=== PATIENT | male | born 1950 | race Caucasian/White ===

== ENCOUNTER → 2016-05-31 | Outpatient (CLI) | payer OTHER, MEDICARE | LOC: MMPC 09:00 | PROVIDERS: ATTEND Family Medicine | DX: E29.1 Testicular hypofunction (principal) | CPT/HCPCS: G0463; J1071 ==

== ENCOUNTER → 2016-06-14 | Outpatient (CLI) | payer OTHER, MEDICARE | LOC: MMPC 09:00 | PROVIDERS: ATTEND Family Medicine | DX: E53.8 Deficiency of other specified B group vitamins (principal); E29.1 Testicular hypofunction | CPT/HCPCS: G0463; J1071; J3420 ==

== ENCOUNTER → 2016-06-28 | Outpatient (CLI) | payer OTHER, MEDICARE | LOC: MMPC 09:00 | PROVIDERS: ATTEND Family Medicine | DX: E29.1 Testicular hypofunction (principal) ==

== ENCOUNTER → 2016-07-12 | Outpatient (CLI) | payer OTHER, MEDICARE | LOC: MMPC 09:00 | PROVIDERS: ATTEND Family Medicine | DX: E29.1 Testicular hypofunction (principal); E53.8 Deficiency of other specified B group vitamins | CPT/HCPCS: G0463; J1071; J3420 ==

== ENCOUNTER → 2016-07-25 | Outpatient (CLI) | payer OTHER, MEDICARE ==
--- NOTE | 2016-07-26 07:45 | DI ---
LEFT THUMB EXAM, 07/25/2016 11:25 AM: Clinical History: Pain in the left thumb. Previous Exam: None at this facility. 3 views are submitted. There is no acute soft tissue, osseous, or joint abnormality. Arthritic change s are present in the first carpometacarpal joint. Vascular calcifications are present in the radial a rtery in a pattern typical for patients who have diabetes. Reading: Degenerative arthritis involving the first carpometacarpal joint.
--- NOTE | 2016-07-26 07:48 | DI ---
RIGHT THUMB, 07/25/2016 11:25 AM: Clinical History: Pain in the right thumb. Previous Exam: None at this facility. 3 views are submitted. There is no acute soft tissue, osseous, or joint abnormality. There are degene rative changes involving the articulation between the trapezium and scaphoid bones. There are also va scular calcifications that are in a pattern typical of patients who have diabetes. Reading: The right thumb exam is normal. Arthritic changes are present in the articulation between the scaphoi d and trapezium bones.
== END ==
LOC: ORTHO 11:35
PROVIDERS: ATTEND Orthopaedic Surgery
DX: M79.645 Pain in left finger(s) (principal); M79.644 Pain in right finger(s); M19.032 Primary osteoarthritis, left wrist; M19.031 Primary osteoarthritis, right wrist
CPT/HCPCS: 20600; 73140; 99203

== ENCOUNTER → 2016-08-09 | Outpatient (CLI) | payer OTHER, MEDICARE | LOC: MMPC 09:00 | PROVIDERS: ATTEND Family Medicine | DX: E29.1 Testicular hypofunction (principal); E53.8 Deficiency of other specified B group vitamins | CPT/HCPCS: G0463; J1071; J3420 ==

== ENCOUNTER → 2016-08-15 | Outpatient (CLI) | payer OTHER, MEDICARE ==
[2016-08-15 09:28] LABS: HEMATOCRIT 51.6 % (42.0-52.0); HEMOGLOBIN 17.8 g/dL (14.0-18.0); MEAN CORPUSCULAR HGB CONC 34.5 g/dL (33-37); MEAN CORPUSCULAR VOLUME 92.8 FL (80-90); MEAN PLATELET VOLUME 8.8 FL (7.4-12.2); RED BLOOD COUNT 5.56 10^6/uL (4.70-6.10)
[2016-08-15 09:43] LABS: HEMOGLOBIN A1C 8.76 % (4.2-6.0)
[2016-08-15 09:46] LABS: BUN/CREATININE RATIO 16.66 (6-20); CALCIUM 8.5 mg/dL (8.7-10.7); PHOSPHORUS 3.9 mg/dl (2.4-4.3)
== END ==
LOC: LAB 09:09
PROVIDERS: ATTEND Family Medicine
DX: E11.9 Type 2 diabetes mellitus without complications (principal); I12.9 Hypertensive chronic kidney disease with stage 1 through stage 4 chronic kidney disease, or unspecified chronic kidney disease; N18.3 Chronic kidney disease, stage 3 (moderate); D63.1 Anemia in chronic kidney disease; N25.81 Secondary hyperparathyroidism of renal origin; R06.02 Shortness of breath
CPT/HCPCS: 36415; 80069; 82565; 83036; 83970; 84156; 85027

== ENCOUNTER → 2016-08-20 | Outpatient (CLI) | payer OTHER, MEDICARE ==
--- NOTE | 2016-08-20 15:51 | EKG ---
[address] [place] [address] Measurements Intervals [place] Rate: 89 P: 65 GA: 230 QRS: 22 QRSD: 102 T: -44 QT: 335 QTc: 381 Interpretive Statements SINUS RHYTHM WITH FIRST DEGREE AV BLOCK MODERATE T-WAVE ABNORMALITY, CONSIDER INFERIOR ISCHEMIA Compared to ECG 01/15/2016 12:34:36 T-wave abnormality now present Possible ischemia now present Myocardial infarct finding no longer present Electronically Signed On 08-20-16 16:01:50 MDT by Hussein Harding [email or web address]
--- NOTE | 2016-08-20 15:53 | PE ---
[facility] [place]ive Statements [id number]
[2016-08-20 15:59] LABS: BUN/CREATININE RATIO 9.37 (6-20); CALCIUM 8.7 mg/dL (8.7-10.7); SERUM ALBUMIN 3.9 g/dL (3.5-4.8)
== END ==
LOC: RT 14:39
PROVIDERS: ATTEND Family Medicine
DX: I50.9 Heart failure, unspecified (principal); R06.02 Shortness of breath; I10 Essential (primary) hypertension; I44.0 Atrioventricular block, first degree
CPT/HCPCS: 36415; 80053; 82728; 83540; 83550; 84439; 84443; 84484; 93005; 93010; 94375

== ENCOUNTER → 2016-08-22 | Outpatient (CLI) | payer OTHER, MEDICARE | LOC: MMPC 10:00 | PROVIDERS: ATTEND Orthopaedic Surgery | DX: M19.042 Primary osteoarthritis, left hand (principal); M19.032 Primary osteoarthritis, left wrist | CPT/HCPCS: 20605 ×2; 99213; G0463; J0702 ==

== ENCOUNTER → 2016-08-26 | Outpatient (CLI) | payer OTHER, MEDICARE | LOC: MMPC 09:00 | PROVIDERS: ATTEND Family Medicine | DX: R53.83 Other fatigue (principal); E11.9 Type 2 diabetes mellitus without complications; R06.09 Other forms of dyspnea; G47.00 Insomnia, unspecified | CPT/HCPCS: 99214; G0463 ==

== ENCOUNTER → 2016-09-05 | Outpatient (CLI) | payer OTHER, MEDICARE | LOC: LAB 11:22 | PROVIDERS: ATTEND Urology | DX: E29.1 Testicular hypofunction (principal); Z12.5 Encounter for screening for malignant neoplasm of prostate | CPT/HCPCS: 36415; 84153; 84403 ==

== ENCOUNTER 2016-09-14 12:40 | Emergency (ER) | payer OTHER, MEDICARE ==
[2016-09-14] MEDS ORDERED: MAG HYDROX/AL HYDROX/SIMETH 30 ML SUSP PO ONE (13:07)
[2016-09-14] MEDS ORDERED: Sodium Chloride 0.9% 1,000 ML PRIMARY IV ONE (13:07)
[2016-09-14] MEDS ORDERED: ASPIRIN 81 MG (BABY) CHEWABLE TABLET PO ONE (13:07)
[2016-09-14] MEDS ORDERED: ONDANSETRON 4 MG/2 ML VIAL IVP ONE (13:07)
[2016-09-14] MEDS ORDERED: NORMAL SALINE 10 ML SYRINGE FLUSH IVP PRN (13:07)
--- NOTE | 2016-09-14 13:10 | EKG ---
[address] [address] Measurements Intervals [place] Rate: 103 P: 57 MI: 208 QRS: -17 QRSD: 106 T: -12 QT: 329 QTc: 389 Interpretive Statements SINUS TACHYCARDIA ABNORMAL RHYTHM ECG Compared to ECG 08/20/2016 14:50:38 Sinus rhythm no longer present First degree AV block no longer present T-wave abnormality no longer present Possible ischemia no longer present Electronically Signed On 09-17-16 16:22:29 MDT by Hussein Harding [id number]
[2016-09-14 13:14] LABS: BASOPHILS # (AUTO) 0.04 10*3/UL; BASOPHILS % (AUTO) 0.5 % (0-1); EOSINOPHILS # (AUTO) 0.18 10*3/UL; EOSINOPHILS % (AUTO) 2.2 % (0-8); HEMATOCRIT 57.4 % (42.0-52.0); HEMOGLOBIN 19.1 g/dL (14.0-18.0); LYMPHOCYTES # (AUTO) 1.36 10*3/uL; MEAN CORPUSCULAR HEMOGLOBIN 30.9 PG (27-31); MEAN CORPUSCULAR HGB CONC 33.3 g/dL (33-37); MEAN CORPUSCULAR VOLUME 92.7 FL (80-90); MEAN PLATELET VOLUME 9.6 FL (7.4-12.2); MONOCYTES # (AUTO) 0.62 10*3/UL (0.3-0.8); MONOCYTES % (AUTO) 7.7 % (5-15); NEUTROPHILS # (AUTO) 5.84 10*3/UL; NEUTROPHILS % (AUTO) 72.3 % (50-80); RED BLOOD COUNT 6.19 10^6/uL (4.70-6.10)
[2016-09-14 13:16] LABS: PLATELET MORPHOLOGY COMMENT NORMAL MORPHOLOGY (NORM); RBC MORPHOLOGY COMMENT NORMAL MORPHOLOGY (NORM); WBC MORPHOLOGY COMMENT NORMAL MORPHOLOGY (NORM)
[2016-09-14 13:24] LABS: BUN/CREATININE RATIO 15.88 (6-20); CALCIUM 9.1 mg/dL (8.7-10.7); SERUM ALBUMIN 4.1 g/dL (3.5-4.8)
[2016-09-14 13:35] LABS: CREATINE KINASE MB 3.87 NG/ML (0.00-5.00)
[2016-09-14 14:04] LABS: TROPONIN I 0.489 ng/mL (< 0.040)
[2016-09-14] MEDS ORDERED: HEPARIN 5000 UNIT/1 ML IV ONE (14:54)
[2016-09-14] MEDS ORDERED: Metoprolol TARTRATE Tab 50 MG TAB PO ONE ×2 (14:54→15:00)
[2016-09-14] MEDS ORDERED: METOPROLOL TARTRATE 5 MG/5 ML VIAL ONE (14:54)
[2016-09-14] MEDS ORDERED: HEPARIN 5000 UNIT/1 ML ONE (14:54)
[2016-09-14] MEDS: METOPROLOL TARTRATE 5 MG/5 ML VIAL IVP ONE ×3 (14:55→15:05)
--- NOTE | 2016-09-14 15:17 | PDOC ---
Chest Pain HPI - General Chief Complaint: Chest Pain Stated Complaint: heartburn x3 days, not feeling well x6 weeks Date Seen by Provider: 09/14/16 Time Seen by Provider: 13:00 Source: Patient, Spouse, Old records Exam Limitations: POSITIVE: No limitations Treatment Prior to Arrival: REPORTS: Nitroglycerin (Times one), Aspirin (baby, times one) Nurse's Notes Reviewed & Considered: Yes - History of Present Illness Initial Comments: The patient is a 66-year-old male who presents ambulatory to the emergency room. He states that for the past 3-4 days he has had chest pain which she describes as "heartburn"which she indicates is localized over the substernal and left anterior thorax. Past medical history is significant in that he sustained a myocardial infarction in October 2015 after he had similar episodes of discomfort. He states that his present pain is "not bad"and he rates it as a 3 on a scale of 10. Patient has a history of diabetes mellitus. He had a gastric bypass in 2004 with a weight loss of over 100 pounds. He has not smoked since 1995. Patient has had a left nephrectomy for cancer, according to patient, in 1995. Patient took a nitroglycerin tablet one hour [employer] and his chest pain has since resolved. He states that he has nitroglycerin on hand, but has never before taken it. He takes a baby aspirin daily as well as clopidogrel. He has a history of COPD and chronic back pain. He had a cardiac stent done in October 2015. Upon presentation to the emergency room he is comfortable. He is noted to be in a mild sinus tachycardia of around 100/m and his blood pressure was 172/104. Body Location Affected: REPORTS: Chest Timing: REPORTS: Intermittent Duration: >24 hours (3-4 days) Severity: Moderate Quality: REPORTS: "Pain" Radiation: REPORTS: None Associated Symptoms: REPORTS: Other (Fatigue; patient states that he has "just not felt well"with easy fatigability and tiredness. He states he's felt this way for the past 6 weeks. He was evaluated by his primary care provider for these symptoms, without any etiology found, reportedly.) Modifying Factors: improves with: Nitroglycerin (Relieved) Similar Symptoms Previously: Yes (in October 2015 preceding his previous myocardial infarction) Recently seen/treated/hospitalized: Yes (as above) Any Prior Injuries Related to Current Complaint?: No - Patient Home Medications Home Medications: Home Medications Budesonide [Pulmicort] 0.5 mg IH Q12H 11/12/10 Formoterol Fumarate [Perforomist] 20 mcg IH BID ml 11/26/10 Ipratropium/Albuterol Sulfate [Duoneb 0.5 Mg-3 Mg/3 Ml Soln] 3 ml IH QD PRN #30 09/30/11 Cyanocobalamin 1,000 mcg IM monthly 30 Days 12/23/11 Blood Sugar Diagnostic, Drum [Accu-Chek Compact] 1 each IN BID PRN #180 strip Aspirin 81 mg PO DAILY tab 08/15/14 Clindamycin HCl [Cleocin Hcl] 1 cap PO BID cap 11/15/14 Loratadine [Claritin Tab] 10 mg PO DAILY tab 11/15/14 Hydrocortisone Butyrate 15 gm TP PRN #1 tube 03/30/15 Exenatide [Byetta] 5 mcg SQ BID #1 each 10/18/15 Quinine Sulfate 250 mg PO PRN #30 cap 10/19/15 Clopidogrel Bisulfate [Plavix] 1 tab PO DAILY tab 11/08/15 Canagliflozin [Invokana] 100 mg PO DAILY #30 tab 12/01/15 Carvedilol 1 tab PO BID #180 tab 01/30/16 Testosterone Cypionate Inj [Depo-Testosrerone Cyp Inj] 300 mg IM ASDIR #1 vial 02/09/16 Albuterol/Ipratropium Inhaler [Combivent Respimat Inhaler] 1 puff INH QID #2 each 04/16/16 Nitroglycerin SL Tab [Nitrostat Sl Tab] 0.4 mg SL PRN #25 tab 05/16/16 Gabapentin 300 mg PO TID #120 cap 06/20/16 Glimepiride 8 mg PO DAILY #30 tab 07/17/16 Simvastatin 1 tab PO QHS #30 tab 07/17/16 Zolpidem Tartrate [Ambien] 2 tab PO QHS #60 tab 07/17/16 Hydrocodone/Acetaminophen [Hydrocodon-Acetaminophn 10-325] 1 tab PO 6XD PRN # 180 tab 08/15/16 fentaNYL Patch 25mcg [Duragesic Patch 25mcg] 25 mcgh TRANSDERM Q48H #15 patch Albuterol Sulfate [Proair Hfa] 1 - 2 puff INH Q4-6H #1 inhaler 08/26/16 Calcitriol [Rocaltrol] 0.25 cap PO DAILY #12 cap 08/26/16 Metformin HCl 1 tab PO BID tab 08/26/16 Suvorexant [Belsomra] Sample #4 08/26/16 Ipratropium [place] [Atrovent Hfa] 2 puff INH BID #1 puff 08/30/16 Omeprazole 1 cap PO BID #60 cap 08/30/16 - Patient Allergies Allergies/Adverse Reactions: Allergies Allergy/AdvReac Type Severity Reaction Status Date / Time insulin lispro Allergy Edema/Hives Verified 09/14/16 12:56 Past Medical History - heen HEENT History: Denies History Additional HEENT History: WEARS GLASSES Cardiovascular History: Hypertension, Previous RI Additional Cardiovasular History: stent placed october 2015 Respiratory History: Asthma, Emphysema, Shortness of Breath Gastrointestinal History: GERD, Other (please comment) Additional Gastrointestinal History: GASTRIC BYPASS Genitourinary History: Denies History Additional Genitourinary History: LEFT NEPHRECTOMY Endocrine History: Type 2 Diabetes (oral) Musculoskeletal History: Back Pain, Joint Pain Prosthesis or Implant: No Additional Musculoskeletal History: LEFT SCIATIC PAIN Neurological History: Denies History Blood Disorders: Denies History Psychiatric History: Denies History History of Sexually Transmitted Diseases: No Male Reproductive History: Denies History Cancer History: Denies History In Past Year Been Physically Harmed or Verbally Threatened: No History of MDRO: Unknown History of Other Communicable Diseases: No Tobacco Use: Former Smoker Alcohol Use: None Substance Use Type: None Previous Surgical History: Yes Type / Date of Surgery: GASTRIC BYPASS, NEPHRECTOMY Anesthesia Reactions: No Malignant Hyperthermia: No Significant Family History: No pertinent family hx Past Medical History Reviewed: Reviewed - No Changes ROS - Limitations ROS Limitations: No Limitations Constitution: REPORTS: Other (Fatigue) Cardiovascular: REPORTS: Chest Pain Respiratory: REPORTS: Denies Resp Symptoms Neurological: REPORTS: Denies Neuro Symptoms Gastrointestinal: REPORTS: Denies GI Symptoms Endocrine: REPORTS: Denies Symptoms Musculoskeletal: REPORTS: Denies MS Symptoms Genitourinary: REPORTS: Denies Symptoms Eyes: REPORTS: Denies Symptoms ENT: REPORTS: Denies Symptoms Skin: REPORTS: Denies Skin Symptoms Lympathic: REPORTS: Denies Lympathic Symptoms Immunologic: POSITIVE: Denies Symptoms Psychiatric: POSITIVE: Denies Psych Symptoms Chest Pain PE - General Appearance General Appearance: REPORTS: Alert, Cooperative, No Acute Distress, No Evidence of Trauma - HEENT HEENT: POSITIVE: Head Inspection Nml, Eyes Inspection Nml, Ears Inspection Nml, Nose Inspection Nml, Oral/Dental Inspect. Nml, Pharynx Inspect. Nml, PERRL, EOMI - Neck Neck: REPORTS: Normal Inspection, No Carotid Bruit - Respiratory Respiratory: REPORTS: No Respiratory Distress, Breath Sounds Normal, Chest Non- Tender - Cardiovascular Cardiovascular: REPORTS: Regular Rate and Rhythm, Heart Sounds Normal, Equal Pulses, Strong Pulses, No Murmur, No Gallop, No Friction Rub, Tachycardia ( Sinus tachycardia of around 100/m) Peripheral Pulses: Radial (R): 2+, Radial (L): 2+ - Abdomen Abdomen: Soft: (All Quadrants), Normal Bowel Sounds: (All Quadrants), Denies Tenderness: (All Quadrants), No Splenomegaly: (All Quadrants), No Hepatomegaly: (All Quadrants), No Guarding: (All Quadrants), No Rebound: (All Quadrants), No Palpable Pulse: (All Quadrants), No Palpabale Mass: (All Quadrants), No Distention: (All Quadrants), No Rigidity: (All Quadrants) - Skin Skin: REPORTS: Intact, Normal For Race, Warm, Dry, No Rash - Extremities Extremity: Non-Tender: (All Extremities), Normal ROM: (All Extremities), Normal Inspection: (All Extremities) - Neurological / Psychological Neurological: POSITIVE: Affect Apporpriate, Oriented X3, pot washer Normal As Tested, Motor Normal, Sensation Normal Images - Complete Complete: 1 - Area of described chest pain Chest Pain Progress - Results Reviewed by me Xrays/CTs/US Reviewed by me: Yes Discussed with Radiologist: No Radiology Findings: Portable chest x-ray normal by my interpretation; radiologist interpretation pending Lab Results Reviewed: Yes (troponin elevated at 0.489) Lab Results:: Laboratory Results 09/14/16 Range/Units 13:00 WBC 8.07 (4.8-10.8) 10^3/uL RBC 6.19 H (4.70-6.10) 10^6/uL Hgb 19.1 H (14.0-18.0) g/dL Hct 57.4 H (42.0-52.0) % MCV 92.7 H (80-90) FL MCH 30.9 (27-31) PG MCHC 33.3 (33-37) g/dL RDW Std Deviation 51.5 H (39-50) fL RDW Coeff of Randi 15.4 H (11.5-14.5) % Plt Count 142 (140-350) 10*3/uL MPV 9.6 (7.4-12.2) FL Immature Gran % (Auto) 0.4 (0-5) % Neut % (Auto) 72.3 (50-80) % Lymph % (Auto) 16.9 (10-50) % Garrett % (Auto) 7.7 (5-15) % Eos % (Auto) 2.2 (0-8) % Baso % (Auto) 0.5 (0-1) % Immature Gran # (Auto) 0.03 10*3/UL Neut # (Auto) 5.84 10*3/UL Lymph # (Auto) 1.36 10*3/uL Garrett # (Auto) 0.62 (0.3-0.8) 10*3/UL Eos # (Auto) 0.18 10*3/UL Baso # (Auto) 0.04 10*3/UL WBC Morphology Comment Normal morphology (NORM) Plt Morphology Comment Normal morphology (NORM) RBC Morph Comment Normal morphology (NORM) D-Dimer 0.27 (0.00-0.59) mg/L Sodium 133 L (135-145) meq/L Potassium 5.4 H (3.8-5.2) meq/L Chloride 99 (98-112) meq/L Carbon Dioxide 22 L (23-33) meq/L Anion Gap 12 (5-20) BUN 27 H (7-22) mg/dL Creatinine 1.7 H (0.70-1.50) mg/dL Estimated GFR 40 (>60 ml/min/1.73m(2)) BUN/Creatinine Ratio 15.88 (6-20) Glucose 382 H (78-110) mg/dL Calculated Osmolality 296.0 H (267-292) mOsm/kg Calcium 9.1 (8.7-10.7) mg/dL Total Bilirubin 2.1 H (0.3-1.2) mg/dL AST 41 (21-57) IU/L ALT 42 (21-72) IU/L Alkaline Phosphatase 84 (38-126) IU/L CK-MB (CK-2) 3.87 (0.00-5.00) NG/ML Troponin I 0.489 H* (< 0.040) ng/mL Total Protein 7.0 (6.1-8.0) g/dL Albumin 4.1 (3.5-4.8) g/dL Globulin 2.9 (2.50-4.10) g/dL Albumin/Globulin Ratio 1.40 (1.3-2.0) mg/g TSH 2.23 (0.2700-4.2000) uIU/mL EKG Interpreted/Reviewed By Me:: Yes (Q wave leads 3 and V1) EKG Interpretation:: POSITIVE: Normal Intervals, Normal [place], Normal QRS, Normal ST/T, Abnormal EKG (Sinus tachycardia). NEGATIVE: Normal Sinus Rhythm ( Sinus tachycardia around the 100), Normal Rate (Sinus tachycardia around 100) - Patient's Progress Pain Medication Addressed: POSITIVE: Not Applicable School/Work Release Addressed: POSITIVE: Not Applicable Re-Examine Time: 14:05 Re-Examine Comment: Diagnosis of probable non-STEMI discussed with patient. Patient given heparin, 4000 units bolus and then 1000 units per hour and was started on metoprolol, 5 mg every 5 minutes up to 15 mg, and then 50 mg by mouth. Re-Examine Time:: 14:30 Re-Examine Comment: Case discussed with Dr. Steele, cardiology, [facility] who has accepted the patient in transfer. Patient given 3 more baby aspirin in addition to the one he took earlier today. Heparin and metoprolol given as above. Patient vitals stable and patient asymptomatic on discharge. Status: POSITIVE: Improved, Re-Examined Quality Measure Initiative: CP/AMI: POSITIVE: EKG, ASA, Transfer - Consult Consult (If Yes, Name of Consulting MD & Time Called): Yes (Dr. Steele, cardiology, [facility], [id number]) Consulting MD will see pt:: POSITIVE: Recommended Transfer Counseled: POSITIVE: Patient, Family, RE: Lab Results, RE: Radiology Results, RE : DX, RE: Need for F/U Patient Care Time - Estimated PCT Patient Care Time (In Minutes): 50 Vital Signs - Recent Vital Signs Vital Signs: Vital Signs (Last 8 hours) Temp Pulse Pulse Pulse Resp BP Pulse Ox 09/14/16 13:07 94 20 128/88 96 09/14/16 12:40 96.4 F L 106 H 106 H 18 172/104 94 - VS Reviewed Vital Signs Reviewed: Yes Discharge Clinical Impression: Non-ST elevation (NSTEMI) myocardial infarction Discharge Disposition: Transferred to Short Term Facility Condition: Stable Date Decision to Transfer to Another Facility: 09/14/16 Time Decision to Transfer to Another Facility: 14:20
[2016-09-14 15:38] VITALS: RESP 16; TEMP 98.4
--- NOTE | 2016-09-16 08:39 | DI ---
XR CXR 1VW,09/14/2016 1:07 PM: Clinical History: Chest pain Previous Exam: March 29, 2015 Findings: A single a radiograph of the chest is obtained, and demonstrates some mild subsegmental atelectasis i n the lung bases. Lungs are otherwise clear. Mild degenerative changes of the cervical spine are seen . Impression: No acute disease.
== END 2016-09-14 15:18 | disposition short-term general hospital (02) ==
LOC: ER 12:40
DX: I21.4 Non-ST elevation (NSTEMI) myocardial infarction (principal); E11.9 Type 2 diabetes mellitus without complications; R07.9 Chest pain, unspecified; R06.02 Shortness of breath; I10 Essential (primary) hypertension
CPT/HCPCS: 71010; 80053; 82553; 84443; 84484; 85025; 85379; 93005; 93010; 96365; 96375; 99285; J1644; J2405; J7030

== ENCOUNTER → 2016-09-19 | Outpatient (CLI) | payer OTHER, MEDICARE | LOC: MMPC 09:00 | PROVIDERS: ATTEND Family Medicine | DX: E29.1 Testicular hypofunction (principal) | CPT/HCPCS: G0463; J1071 ==

== ENCOUNTER → 2016-09-20 | Outpatient (CLI) | payer OTHER, MEDICARE ==
[2016-09-20 13:30] LABS: BUN/CREATININE RATIO 13.75 (6-20); CALCIUM 8.6 mg/dL (8.7-10.7)
== END ==
LOC: LAB 12:48
PROVIDERS: ATTEND Internal Medicine Cardiovascular Disease
DX: I21.4 Non-ST elevation (NSTEMI) myocardial infarction (principal)
CPT/HCPCS: 36415; 80048

== ENCOUNTER → 2016-09-23 | Outpatient (CLI) | payer OTHER, MEDICARE | LOC: MMPC 09:00 | PROVIDERS: ATTEND Family Medicine | DX: I21.4 Non-ST elevation (NSTEMI) myocardial infarction (principal); E11.9 Type 2 diabetes mellitus without complications; I10 Essential (primary) hypertension | CPT/HCPCS: 99214; G0463 ==

== ENCOUNTER → 2016-10-04 | Outpatient (CLI) | payer OTHER, MEDICARE | LOC: MMPC 09:00 | PROVIDERS: ATTEND Family Medicine | DX: E53.8 Deficiency of other specified B group vitamins (principal); E29.1 Testicular hypofunction | CPT/HCPCS: G0463; J1071; J3420 ==

== ENCOUNTER → 2016-10-18 | Outpatient (CLI) | payer OTHER, MEDICARE | LOC: MMPC 09:00 | PROVIDERS: ATTEND Family Medicine | DX: E29.1 Testicular hypofunction (principal) | CPT/HCPCS: G0463; J1071 ==

== ENCOUNTER → 2016-10-31 | Outpatient (CLI) | payer OTHER, MEDICARE | LOC: MMPC 09:00 | PROVIDERS: ATTEND Family Medicine | DX: E29.1 Testicular hypofunction (principal); E53.8 Deficiency of other specified B group vitamins | CPT/HCPCS: G0463; J1071; J3420 ==

== ENCOUNTER → 2016-11-07 | Outpatient (CLI) | payer OTHER, MEDICARE | LOC: SLEEP LAB 21:01 | PROVIDERS: ATTEND Family Medicine | DX: G47.33 Obstructive sleep apnea (adult) (pediatric) (principal); G47.34 Idiopathic sleep related nonobstructive alveolar hypoventilation | CPT/HCPCS: 95811 ==

== ENCOUNTER → 2016-11-15 | Outpatient (CLI) | payer OTHER, MEDICARE | LOC: MMPC 09:00 | PROVIDERS: ATTEND Family Medicine | DX: E29.1 Testicular hypofunction (principal) | CPT/HCPCS: G0463; J1071 ==

== ENCOUNTER → 2016-12-06 | Outpatient (CLI) | payer OTHER, MEDICARE | LOC: MMPC 09:00 | PROVIDERS: ATTEND Family Medicine | DX: E53.8 Deficiency of other specified B group vitamins (principal); E29.1 Testicular hypofunction | CPT/HCPCS: G0463; J1071; J3420 ==

== ENCOUNTER → 2016-12-11 | Outpatient (CLI) | payer OTHER, MEDICARE ==
[2016-12-11 09:32] LABS: CHOL/HDL RATIO 2.12 RATIO (0-4.0); LDL CHOLESTEROL,CALCULATED 48.6 mg/dL; SERUM ALBUMIN 3.5 g/dL (3.5-4.8)
[2016-12-11 09:54] LABS: HEMOGLOBIN A1C 7.28 % (4.2-6.0)
== END ==
LOC: LAB 08:33
PROVIDERS: ATTEND Nurse Practitioner Family
DX: I21.4 Non-ST elevation (NSTEMI) myocardial infarction (principal); E11.9 Type 2 diabetes mellitus without complications; E55.9 Vitamin D deficiency, unspecified
CPT/HCPCS: 36415; 80061; 80076; 82306; 83036

== ENCOUNTER → 2016-12-19 | Outpatient (CLI) | payer OTHER, MEDICARE | LOC: MMPC 09:00 | PROVIDERS: ATTEND Family Medicine | DX: E29.1 Testicular hypofunction (principal) | CPT/HCPCS: G0463; J1071 ==

== ENCOUNTER → 2016-12-24 | Outpatient (CLI) | payer OTHER, MEDICARE | LOC: MOB LAB 13:15 | PROVIDERS: ATTEND Family Medicine | DX: I50.9 Heart failure, unspecified (principal); I20.9 Angina pectoris, unspecified; R06.00 Dyspnea, unspecified; I10 Essential (primary) hypertension; E53.8 Deficiency of other specified B group vitamins; I25.2 Old myocardial infarction | CPT/HCPCS: 36415; 83880; 84484; 99214; G0463 ==

== ENCOUNTER → 2017-01-01 | Outpatient (CLI) | payer OTHER, MEDICARE | LOC: US 13:02 | PROVIDERS: ATTEND Family Medicine | DX: I10 Essential (primary) hypertension (principal); I50.9 Heart failure, unspecified; I25.10 Atherosclerotic heart disease of native coronary artery without angina pectoris; R06.00 Dyspnea, unspecified; R53.83 Other fatigue; R60.9 Edema, unspecified | CPT/HCPCS: 93306 ==

== ENCOUNTER → 2017-01-02 | Outpatient (CLI) | payer OTHER, MEDICARE | LOC: MMPC 09:00 | PROVIDERS: ATTEND Family Medicine | DX: E29.1 Testicular hypofunction (principal); E53.8 Deficiency of other specified B group vitamins | CPT/HCPCS: G0463; J1071; J3420 ==

== ENCOUNTER 2018-10-14 21:59 | Inpatient (IN) ==
[2018-10-14] MEDS ORDERED: Sodium Chloride 0.9% 500 ML PRIMARY IV ONE (22:28)
--- NOTE | 2018-10-14 22:48 | EKG ---
[address] [place] [address] Measurements Intervals [place] Rate: 119 P: 44 CO: 202 QRS: -17 QRSD: 98 T: 9 QT: 280 QTc: 351 Interpretive Statements SINUS TACHYCARDIA INFERIOR MYOCARDIAL INFARCTION PROBABLY OLD Compared to ECG 08/06/2018 20:57:56 Myocardial infarct finding now present T-wave abnormality no longer present Electronically Signed On 10-15-18 09:15:11 MDT by Hussein Harding [id number]
[2018-10-14 22:53] LABS: BASOPHILS # (AUTO) 0.02 10*3/UL; BASOPHILS % (AUTO) 0.2 % (0-1); EOSINOPHILS # (AUTO) 0.02 10*3/UL; EOSINOPHILS % (AUTO) 0.2 % (0-8); Hematocrit [HCT] 55.1 % (42.0-52.0); LYMPHOCYTES # (AUTO) 0.52 10*3/uL; MEAN CORPUSCULAR HEMOGLOBIN 31.2 PG (27-31); MEAN CORPUSCULAR HGB CONC 32.7 g/dL (33-37); MEAN CORPUSCULAR VOLUME 95.5 FL (80-90); MEAN PLATELET VOLUME 10.6 FL (7.4-12.2); MONOCYTES # (AUTO) 0.72 10*3/UL (0.3-0.8); MONOCYTES % (AUTO) 6.1 % (5-15); NEUTROPHILS # (AUTO) 10.56 10*3/UL; NEUTROPHILS % (AUTO) 88.8 % (50-80); RED BLOOD COUNT 5.77 10^6/uL (4.70-6.10)
[2018-10-14 23:05] LABS: BUN/CREATININE RATIO 11.76 (6-20); SERUM ALBUMIN 3.6 g/dL (3.5-4.8)
[2018-10-14 23:11] LABS: PLATELET MORPHOLOGY COMMENT NORMAL MORPHOLOGY (NORM); RBC MORPHOLOGY COMMENT NORMAL MORPHOLOGY (NORM); WBC MORPHOLOGY COMMENT NORMAL MORPHOLOGY (NORM)
[2018-10-14] MEDS ORDERED: HYDROcodone-APAP 10 MG-325 MG TABLET PO ONE (23:19)
[2018-10-14 23:25] LABS: BILIRUBIN,URINE SMALL (NEG); CLARITY,URINE CLEAR (CLEAR); COLOR,URINE YELLOW (Y); OCCULT BLOOD,URINE SMALL (NEG); PH,URINE 5.5 (5.0-8.5); PROTEIN,URINE 100 mg/dl (NEG); UROBILINOGEN,URINE 0.2 EU/dL (0.2)
[2018-10-14 23:28] LABS: GLUCOSE, URINE (UA) >=1000 mg/dL (NEG); SQUAMOUS EPITHELIAL CELL,UR FEW; URINE SAMPLE TYPE CLEAN CATCH URINE
[2018-10-14] MEDS ORDERED: cefTRIAXone Inj 1 GM in Sodium Chloride 0.9% 100 ML IV ONE (23:51)
[2018-10-15] MEDS ORDERED: IPRATROPIUM/ALBUTEROL SULFATE 3 ML NEB NEB ONE (00:17)
--- NOTE | 2018-10-15 00:23 | PDOC ---
Gen Adult / Medical Screen HPI - General Chief Complaint: General Medical Stated Complaint: fever, chills, Date Seen by Provider: 10/15/18 Time Seen by Provider: 22:55 Source: POSITIVE: Patient - History of Present Illness Initial Comments: Patient presents to emergency room for evaluation of fever. Patient states that today he had abdominal pain centrally that was 8/10 and lasted 3-4 hours before completely resolving. Patient states that he has also had some chills and laron ing. This is similar to prior episodes when he is had Escherichia coli sepsis. Patient states that he has been followed by various infectious disease doctors who cannot find the source of Escherichia coli infection. - Patient Home Medications Home Medications: Home Medications Budesonide [Pulmicort] 0.5 mg IH Q12H 11/12/10 Cyanocobalamin 1,000 mcg IM monthly 30 Days 12/23/11 Blood Sugar Diagnostic, Drum [Accu-Chek Compact Plus Strips] 1 ea IN BID PRN #180 strip 05/16/14 Aspirin 81 mg PO DAILY tab 08/15/14 Loratadine [Claritin] 10 mg PO DAILY tab 11/15/14 Nitroglycerin SL Tab [Nitrostat SL Tab] 0.4 mg SL PRN #25 tab 05/16/16 ipratropium-albuterol 0.5 mg-3 mg(2.5 mg base)/3 mL nebulization soln 3 ml INH TID PRN #3 ml 03/28/17 gabapentin 300 mg capsule 300 mg PO TID #360 cap MDD 1200mg/300mg BID and 600mg QHS 04/23/18 calcitriol 0.25 mcg capsule 0.5 mcg PO DAILY cap 05/07/18 carvedilol 6.25 mg tablet 6.25 mg PO BID #180 tab 06/04/18 hydrocortisone butyrate 0.1 % topical cream 1 applic TOPICAL PRN #45 g 06/04/18 zolpidem 10 mg tablet 20 mg PO QHS #60 tab 06/04/18 exenatide 5 mcg/dose (250 mcg/mL)1.2 mL subcutaneous pen injector 5 mcg SUBCUT BID #1 ea 06/18/18 canagliflozin 100 mg tablet 100 mg PO QDAY #90 tab 06/25/18 omeprazole 40 mg capsule,delayed release 40 mg PO QDAY #120 cap 06/25/18 cholecalciferol (vitamin D3) 5,000 unit tablet See Rx Instructions .ROUTE .COMPLEX #100 tab 08/05/18 ipratropium 20 mcg-albuterol 100 mcg/actuation mist for inhalation 1 puff INH QID #2 ea 08/14/18 atorvastatin 20 mg tablet 20 mg PO QDAY #90 tab 09/14/18 glimepiride 4 mg tablet 8 mg PO DAILY #180 tab 09/14/18 metformin 500 mg tablet 500 mg PO BID #180 tab 09/14/18 oxygen-air delivery systems device See Dose Instructions .ROUTE .MEDSUPPLY #1 09/14/18 fentanyl 25 mcg/hr transdermal patch 1 patch TRANSDERM Q48H #15 patch 10/01/18 hydrocodone 10 mg-acetaminophen 325 mg tablet 1 - 2 tab PO 6XD PRN #270 tab 10/01/18 - Patient Allergies Allergies/Adverse Reactions: Allergies Allergy/AdvReac Type Severity Reaction Status Date / Time No Known Allergies Allergy Verified 10/15/18 06:37 Past Medical History - heen HEENT History: Denies History Additional HEENT History: WEARS GLASSES Cardiovascular History: Hypertension, Previous PA, CAD, Hyperlipidemia Additional Cardiovasular History: CARDIAC STENTS x3 Respiratory History: Asthma, COPD, Emphysema Gastrointestinal History: GERD, Other (please comment) Additional Gastrointestinal History: GASTRIC BYPASS Genitourinary History: Other (please comment) Additional Genitourinary History: LEFT NEPHRECTOMY SECONDARY TO CANCER Endocrine History: Type 2 Diabetes (oral), Type 2 Diabetes (insulin) Musculoskeletal History: Back Pain, Joint Pain Prosthesis or Implant: Yes (CARDIAC STENTS x3) Additional Musculoskeletal History: LEFT SCIATIC PAIN Neurological History: Denies History Blood Disorders: Denies History Psychiatric History: Denies History History of Sexually Transmitted Diseases: No Cancer History: Other (please comment) In Past Year Been Physically Harmed or Verbally Threatened: No History of MDRO: No History of Other Communicable Diseases: No Tobacco Use: Former Smoker Alcohol Use: None In the Past 12 Months, Have Used or Abuse Any Substance: None Previous Surgical History: Yes Type / Date of Surgery: GASTRIC BYPASS, NEPHRECTOMY, CARDIAC CATH WITH STENT PLACEMENT x3, ORIF LEFT ARM Anesthesia Reactions: No Malignant Hyperthermia: No Significant Family History: No pertinent family hx Past Medical History Reviewed: Reviewed - No Changes ROS - Limitations ROS Limitations: No Limitations Constitution: REPORTS: Chills, Other (denies fever) Cardiovascular: REPORTS: Denies Cardiac Symptoms Gastrointestinal: REPORTS: Abdominal Pain, Other (denies n/v) Genitourinary: REPORTS: Denies Symptoms ENT: REPORTS: Denies Symptoms Gen Adult/Medical Screen Exam - General Appearance General Appearance: POSITIVE: Alert, Cooperative, No Acute Distress - HEENT HEENT: POSITIVE: Head Inspection Nml, Eyes Inspection Nml - Neck Neck: POSITIVE: Normal Inspection - Respiratory Respiratory: POSITIVE: No Respiratory Distress, Breath Sounds Normal - Cardiovascular Cardiovascular: POSITIVE: Tachycardia - Abdomen Abdomen: Soft: (All Quadrants), Denies Tenderness: (All Quadrants), Hyperactive Bowel Sounds: (All Quadrants) - Neurological / Psychological Mental Status: POSITIVE: Mood Normal, Affect Normal - Skin Skin: POSITIVE: Normal Color, Dry Gen Adlt/Medical Scrn Progress - Results Reviewed by me Xrays/CTs/US Reviewed by me: Yes Lab Results Reviewed by Me: Yes CBC and BMP: 10/15/18 08:28 10/15/18 08:28 Lab Results:: Laboratory Results 10/14/18 10/14/18 10/14/18 22:35 22:35 22:35 WBC 11.88 H RBC 5.77 Hgb 18.0 Hct 55.1 H MCV 95.5 H MCH 31.2 H MCHC 32.7 L RDW Std Deviation 59.0 H RDW Coeff of Randi 16.9 H Plt Count 119 L MPV 10.6 Immature Gran % (Auto) 0.3 Neut % (Auto) 88.8 H Lymph % (Auto) 4.4 L [place] % (Auto) 6.1 Eos % (Auto) 0.2 Baso % (Auto) 0.2 Immature Gran # (Auto) 0.04 Neut # (Auto) 10.56 Lymph # (Auto) 0.52 [place] # (Auto) 0.72 Eos # (Auto) 0.02 Baso # (Auto) 0.02 WBC Morphology Comment Normal morphology Plt Morphology Comment Normal morphology RBC Morph Comment Normal morphology Sodium 136 Potassium 5.3 H Chloride 103 Carbon Dioxide 19 L Anion Gap 14 BUN 20 Creatinine 1.7 H Estimated GFR 40 BUN/Creatinine Ratio 11.76 Glucose 215 H Calculated Osmolality 290.0 Lactic Acid 1.9 Calcium 8.6 L Total Bilirubin 1.9 H AST 241 H ALT 198 H Alkaline Phosphatase 168 H Troponin I C-Reactive Protein 7.5 H Total Protein 6.4 Albumin 3.6 Globulin 2.7 Albumin/Globulin Ratio 1.30 Ur Collection Type Urine Color Urine Clarity Urine pH Ur Specific Star Urine Protein Urine Glucose (UA) Urine Ketones Urine Occult Blood Urine Nitrate Urine Bilirubin Urine Urobilinogen Ur Leukocyte Esterase Urine RBC Urine WBC Ur Squamous Epith Cells Ur Renal Epithelial Cell Urine Crystals Urine Bacteria Urine Casts Urine Mucus Urine Trichomonas Urine Yeast Ur Culture Indicated? 10/14/18 10/14/18 22:35 23:15 WBC RBC Hgb Hct MCV MCH MCHC RDW Std Deviation RDW Coeff of Randi Plt Count MPV Immature Gran % (Auto) Neut % (Auto) Lymph % (Auto) [place] % (Auto) Eos % (Auto) Baso % (Auto) Immature Gran # (Auto) Neut # (Auto) Lymph # (Auto) [place] # (Auto) Eos # (Auto) Baso # (Auto) WBC Morphology Comment Plt Morphology Comment RBC Morph Comment Sodium Potassium Chloride Carbon Dioxide Anion Gap BUN Creatinine Estimated GFR BUN/Creatinine Ratio Glucose Calculated Osmolality Lactic Acid Calcium Total Bilirubin AST ALT Alkaline Phosphatase Troponin I 0.021 C-Reactive Protein Total Protein Albumin Globulin Albumin/Globulin Ratio Ur Collection Type Clean catch urine Urine Color Yellow Urine Clarity Clear Urine pH 5.5 Ur Specific Star 1.010 Urine Protein 100 A Urine Glucose (UA) >=1000 Urine Ketones Trace A Urine Occult Blood Small H Urine Nitrate Negative Urine Bilirubin Small Urine Urobilinogen 0.2 Ur Leukocyte Esterase Negative Urine RBC 1-3 Urine WBC None Ur Squamous Epith Cells Few Ur Renal Epithelial Cell None Urine Crystals None Urine Bacteria None Urine Casts None Urine Mucus None Urine Trichomonas None Urine Yeast None Ur Culture Indicated? Culture not set EKG Interpreted/Reviewed By Me:: Yes (119 sinus, no stemi) - Patient's Progress MDM / ED Course: Workup thus far similar to patient's prior for Escherichia coli sepsis. Will seek admission. Pt's bp dropped to as low as 85. We gave more fluids and removed pt's fentanyl patch. BP increased and remained stable after pressure was around 105/85. Patient states his blood pressure normally runs low in this range is normal for him. Spoke w Dr. Shannon who asks if pt could be transferred. I spoke to pt about this and pt states he does not want to be transferred and pt asks for me to talk to Dr. Shannon again. I did and he agrees to admit. Patient Care Time - Estimated PCT Patient Care Time (In Minutes): 15 Vital Signs - Recent Vital Signs Vital Signs: Vital Signs (Last 8 hours) Pulse Resp BP Pulse Ox 10/15/18 01:51 98 17 111/59 94 - VS Reviewed Vital Signs Reviewed: Yes Critical Care Note - Critical Care Note Total Time (mins): 30 (hypotension, SIRS) History Source: Patient, Family Discharge Clinical Impression: SIRS (systemic inflammatory response syndrome) Fever Qualifiers: Fever type: unspecified Qualified Code(s): R50.9 - Fever, unspecified Hypotension Qualifiers: Hypotension type: unspecified hypotension type Qualified Code(s): I95.9 - Hypotension, unspecified Discharge Disposition: Admit to Inpatient Condition: Fair Date Decision to Admit to Inpatient: 10/15/18 Time Decision to Admit to Inpatient: 00:25
[2018-10-15] MEDS ORDERED: Sodium Chloride 0.9% 500 ML PRIMARY IV ONE (00:49)
[2018-10-15] MEDS ORDERED: Zolpidem Tab 5 MG TAB PO ONE (00:55)
--- NOTE | 2018-10-15 01:38 | DI ---
INDICATION: Fever, sepsis of unknown origin TECHNIQUE: Multiple, contiguous axial images of the abdomen are obtained from the lung bases to the iliac crests. No contrast is given. Sagittal and coronal reformatted images are available. COMPARISON: CT abdomen and pelvis without contrast, 08/06/18 FINDINGS: The lung bases are clear. There is a small sliding-type hiatal hernia. Gallbladder is surgically absent. There is no biliary dilatation. Unenhanced appearance of the liver is unremarkable. There is borderline splenomegaly. There is fatty replacement of the pancreas. The right kidney and adrenal glands are unremarkable. The patient is status post left adrenalectomy and left nephrectomy. There are postsurgical changes of the stomach and small bowel. There is no evidence of bowel obstruction. There is a grossly stable 4.9 x 1.6 x 3.2 cm fluid collection in the anterior abdomen at the midline. There are postsurgical changes in the overlying anterior abdominal wall. Aortoiliac atherosclerosis is not associated with aneurysm. There is no adenopathy. There are no acute osseous findings. IMPRESSION: 1. No CT findings to account for patient's fever, sepsis. 2. Postoperative changes of the stomach and small bowel. Cholecystectomy. 3. Stable postoperative changes of anterior abdominal wall with small loculated fluid collection in the anterior abdomen, most likely postoperative hematoma/seroma.
[2018-10-15] MEDS ORDERED: LIDOCAINE W/ SODIUM BICARB 0.5 ML SYR SUBD PRN (02:26)
[2018-10-15] MEDS ORDERED: DOCUSATE 100 MG CAPSULE PO PRN (02:26)
[2018-10-15] MEDS ORDERED: ONDANSETRON 4 MG/2 ML VIAL IVP PRN (02:26)
[2018-10-15] MEDS ORDERED: CALCIUM CARBONATE 500 MG (TUMS) CHEWABLE TABLET PO PRN (02:26)
[2018-10-15] MEDS: Lactated Ringers 1,000 ML PRIMARY IV SCH ×4 (03:00→17:54)
[2018-10-15] MEDS: Ertapenem Inj 1 GM in Sodium Chloride 0.9% 100 ML IV SCH (03:10)
[2018-10-15] MEDS: HYDROcodone-APAP 10 MG-325 MG TABLET PO PRN ×5 (03:49→21:24)
--- NOTE | 2018-10-15 06:39 | PDOC ---
HPI - History of Present Illness Date of Service: 10/15/18 Time of Service: 06:35 Chief Complaint: Chills, fever at home started the day of admission History of Present Illness: This is a 68 years old male with medical history significant for history of diabetes, coronary artery disease with previous stent, chronic kidney disease stage III, hypertension, chronic pain syndrome, GERD, history of renal cancer status post left nephrectomy, and history of Escherichia coli bacteremia back in May and July this year he said he had multiple investigation did not find a reason for the bacteremia, there was a fluid collection in the anterior abdomen and they aspirated it twice and there was no growth according to the patient this time he came into the hospital because of chills that started yesterday morning, shakes and also fever as high as 103 at home. Because Of all these symptoms he came into the ER and he said his symptoms reminded him of what he had back in May and July with the Escherichia coli bacteremia although it's not as bad as before , had multiple tests in the ER his white count was slightly elevated, his LFTs were abnormal he was given fluids antibiotic and was admitted. He denied pain, nausea, vomiting and diarrhea. Feels better this morning. Past Medical History Medical History: 1. Diabetes mellitus type II. 2. History of renal cancer status post left nephrectomy. 3. Hypertension. 4. History of coronary artery disease, with stents 3. 5. Diabetic neuropathy. 6. COPD, on nocturnal oxygen at 2 L per nasal cannula. 7. Testosterone deficiency. 8. History of vitamin D deficiency. 9. Sleep apnea on CPAP. 10. Chronic pain syndrome. 11. Status post gastric bypass. 12. History of Escherichia coli sepsis Surgical History: 1. History of gastric bypass and incidental cholecystectomy at that time. 2. History of left nephrectomy. 3. Umbilical herniorrhaphy. 4. History of previous neck and back surgeries Pertinent Family History: Both father and mother had coronary artery disease Past Social History: Used to smoke quit in , doesn't drink, no drugs, , has healthy children. Retired. CODE STATUS is full code. Tobacco Use: Former Smoker In the Past 12 Months, Have Used or Abuse Any of the Following Substance: None Medication / Allergies Home Medications: Home Medications Medication Instructions Recorded Confirmed Budesonide [Pulmicort] 0.5 mg IH Q12H 11/12/10 10/14/18 Cyanocobalamin 1,000 mcg IM monthly 30 Days 12/23/11 10/14/18 Blood Sugar Diagnostic, Drum 1 ea IN BID PRN #180 strip 05/16/14 10/14/18 [Accu-Chek Compact Plus Strips] Aspirin 81 mg PO DAILY tab 08/15/14 10/14/18 Loratadine [Claritin] 10 mg PO DAILY tab 11/15/14 10/14/18 Nitroglycerin SL Tab [Nitrostat 0.4 mg SL PRN #25 tab 05/16/16 10/14/18 SL Tab] ipratropium-albuterol 0.5 mg-3 3 ml INH TID PRN #3 ml 03/28/17 10/14/18 mg(2.5 mg base)/3 mL nebulization soln gabapentin 300 mg capsule 300 mg PO TID #360 cap MDD 04/23/18 10/14/18 1200mg/300mg BID and 600mg QHS calcitriol 0.25 mcg capsule 0.5 mcg PO DAILY cap 05/07/18 10/14/18 carvedilol 6.25 mg tablet 6.25 mg PO BID #180 tab 06/04/18 10/14/18 hydrocortisone butyrate 0.1 % 1 applic TOPICAL PRN #45 g 06/04/18 10/14/18 topical cream zolpidem 10 mg tablet 20 mg PO QHS #60 tab 06/04/18 10/14/18 exenatide 5 mcg/dose (250 5 mcg SUBCUT BID #1 ea 06/18/18 10/14/18 mcg/mL)1.2 mL subcutaneous pen injector canagliflozin 100 mg tablet 100 mg PO QDAY #90 tab 06/25/18 10/14/18 omeprazole 40 mg capsule,delayed 40 mg PO QDAY #120 cap 06/25/18 10/14/18 release cholecalciferol (vitamin D3) 5,000 See Rx Instructions .ROUTE 08/05/18 10/14/18 unit tablet .COMPLEX #100 tab ipratropium 20 mcg-albuterol 100 1 puff INH QID #2 ea 08/14/18 10/14/18 mcg/actuation mist for inhalation atorvastatin 20 mg tablet 20 mg PO QDAY #90 tab 09/14/18 10/14/18 glimepiride 4 mg tablet 8 mg PO DAILY #180 tab 09/14/18 10/14/18 metformin 500 mg tablet 500 mg PO BID #180 tab 09/14/18 10/14/18 oxygen-air delivery systems device See Dose Instructions .ROUTE 09/14/18 09/14/18 .MEDSUPPLY #1 fentanyl 25 mcg/hr transdermal 1 patch TRANSDERM Q48H #15 patch 10/01/18 10/14/18 patch hydrocodone 10 mg-acetaminophen 1 - 2 tab PO 6XD PRN #270 tab 10/01/18 10/14/18 325 mg tablet Allergies/Adverse Reactions: Allergies Allergy/AdvReac Type Severity Reaction Status Date / Time No Known Allergies Allergy Verified 10/15/18 06:37 Review of Systems - Review of Systems All Systems: Reviewed & No Additional Complaints Except as Stated Exam - Vitals Vital Signs: Vital Signs Temperature 97.6 F Temperature Source Temporal Artery Scan Pulse Rate [Pulse Oximeter] 82 Pulse Rate [right hand] 80 Pulse Rate 90 Respiratory Rate 20 Blood Pressure [Right Arm] 95/59 Blood Pressure [Left Arm] 93/62 Blood Pressure 97/62 Pulse Ox [right hand] 92 Pulse Ox 93 Oxygen Flow Rate [right hand] 2 Oxygen Flow Rate 2 Oxygen Delivery Method [right CPAP (Home Unit) hand] Oxygen Delivery Method CPAP (Home Unit) Height 5 ft 7 in Weight 193 lb 3.2 oz - General General Appearance: No Acute Distress, Cooperative - Head Head Exam: Normal Inspection - Eye Eye Exam: POSITIVE: Normal Appearance - ENT ENT Exam: POSITIVE: Normal Exam - Neck Neck Exam: Normal Inspection - Respiratory Respiratory Exam: POSITIVE: Clear to Auscultation - Bilaterally - Cardiovascular Cardiovascular Exam: POSITIVE: RRR - GI/Abdominal GI/Abdominal Exam: POSITIVE: Normal Bowel Sounds, Non Tender, Non Distended, Soft - Rectal Rectal Exam: POSITIVE: Deferred - External Exam: POSITIVE: Deferred Exam: POSITIVE: Deferred - Extremities Extremities Exam: POSITIVE: Normal Inspection - Back Back Exam: POSITIVE: Normal Inspection - Neurological Neurological Exam: POSITIVE: Alert, Oriented x 3, CN II-XII Intact, No Facial Droop, Speech Intact / Clear, Moves All Extremities Equally - Psychiatric Psychiatric Exam: POSITIVE: Normal Affect - Integumentary Integumentary Exam: POSITIVE: Normal Color Results - Labs CBC and BMP: 10/15/18 08:28 10/15/18 08:28 - Imaging Status: Report Reviewed by Me (1. No CT findings to account for patient's fever, sepsis. 2. Postoperative changes of the stomach and small bowel. Cholecystectomy. 3. Stable postoperative changes of anterior abdominal wall with small loculated fluid collection in the anterior abdomen, most likely postoperative hematoma/seroma.) Assessment and Plan - Patient Problems (1) Fever Current Visit: Yes Status: Acute Comment: No fever yet today. I think we'll continue with IV antibiotics until we have culture results. Continue fluids. Repeat his labs today. Code(s): R50.9 - Fever, unspecified Qualifiers: Fever type: unspecified Qualified Code(s): R50.9 - Fever, unspecified (2) Hypertension Current Visit: No Status: Acute Comment: His blood pressure is borderline I think we'll hold his blood pressure medication for today Code(s): I10 - Essential (primary) hypertension Qualifiers: Hypertension type: secondary to other renal disorders Qualified Code(s): I15.1 - Hypertension secondary to other renal disorders; N28.89 - Other spec ified disorders of kidney and ureter (3) Diabetes mellitus type 2 in obese Current Visit: No Status: Chronic Onset Date: 03/23/12 Comment: Continue previous medication but will hold metformin for now. Code(s): E11.69 - Type 2 diabetes mellitus with other specified complication; E66.9 - Obesity, unspecified
[2018-10-15] MEDS ORDERED: IPRATROPIUM/ALBUTEROL SULFATE 3 ML NEB NEB PRN (07:12)
[2018-10-15] MEDS ORDERED: BUDESONIDE 0.5 MG/2 ML NEB SCH (07:15)
--- NOTE | 2018-10-15 07:17 | DI ---
PA /LATERAL CHEST, 10/14/2018 10:28 PM : Clinical History: Tachycardia. Previous Exam: 09/10/2018. Soft Tissues: No acute soft tissue abnormality. Bones: Normal. Heart: Normal heart size. Vascular stents present in the distal half of the LAD Lungs: No infiltrates. Effusion(s): None. Mediastinum: Normal mediastinum. Nodules: No pulmonary nodules. Reading: Normal chest x-ray. Coronary artery disease.
[2018-10-15 08:44] LABS: BASOPHILS # (AUTO) 0.02 10*3/UL; BASOPHILS % (AUTO) 0.2 % (0-1); EOSINOPHILS # (AUTO) 0.12 10*3/UL; EOSINOPHILS % (AUTO) 1.2 % (0-8); LYMPHOCYTES # (AUTO) 0.98 10*3/uL; MEAN CORPUSCULAR HEMOGLOBIN 31.7 PG (27-31); MEAN CORPUSCULAR HGB CONC 32.7 g/dL (33-37); MEAN CORPUSCULAR VOLUME 97.2 FL (80-90); MEAN PLATELET VOLUME 10.5 FL (7.4-12.2); MONOCYTES # (AUTO) 0.71 10*3/UL (0.3-0.8); MONOCYTES % (AUTO) 7.2 % (5-15); NEUTROPHILS # (AUTO) 7.99 10*3/UL; NEUTROPHILS % (AUTO) 81.3 % (50-80); RED BLOOD COUNT 5.04 10^6/uL (4.70-6.10)
[2018-10-15 08:46] LABS: PLATELET MORPHOLOGY COMMENT NORMAL MORPHOLOGY (NORM); RBC MORPHOLOGY COMMENT NORMAL MORPHOLOGY (NORM); WBC MORPHOLOGY COMMENT NORMAL MORPHOLOGY (NORM)
[2018-10-15 08:56] LABS: SERUM ALBUMIN 2.4 g/dL (3.5-4.8)
[2018-10-15] MEDS: CANAGLIFLOZIN 100 MG PO SCH (09:52)
[2018-10-15] MEDS: GLIMEPIRIDE 4 MG PO SCH (09:52)
[2018-10-15] MEDS: LORATADINE 10 MG TABLET PO SCH (09:53)
[2018-10-15] MEDS: CALCITRIOL 0.25 MCG CAPSULE PO SCH (09:53)
[2018-10-15] MEDS: ASPIRIN 81 MG (BABY) CHEWABLE TABLET PO SCH (09:53)
[2018-10-15] MEDS: GABAPENTIN 300 MG CAPSULE PO SCH ×3 (09:53→20:23)
[2018-10-15] MEDS: OMEPRAZOLE 40 MG CAPSULE PO SCH (09:53)
[2018-10-15] MEDS: EXENATIDE 5 MCG SUBCUT SCH ×2 (09:54→20:23)
[2018-10-15] MEDS: BUDESONIDE 0.5 MG/2 ML NEB SCH ×2 (10:25→19:16)
[2018-10-15] MEDS: IPRATROPIUM/ALBUTEROL SULFATE 3 ML NEB NEB PRN ×2 (13:35→19:17)
[2018-10-15] MEDS: ATORVASTATIN 20 MG TABLET PO SCH (20:22)
[2018-10-15] MEDS ORDERED: fentaNYL 25 MCG/HR PATCH TRANSDERM SCH (21:00)
[2018-10-15] MEDS: ZOLPIDEM 10 MG TABLET PO SCH (23:27)
[2018-10-16] MEDS: Lactated Ringers 1,000 ML PRIMARY IV SCH ×2 (01:35→17:33)
[2018-10-16] MEDS: Ertapenem Inj 1 GM in Sodium Chloride 0.9% 100 ML IV SCH (01:36)
[2018-10-16] MEDS: HYDROcodone-APAP 10 MG-325 MG TABLET PO PRN ×5 (04:35→22:12)
[2018-10-16 04:56] LABS: BASOPHILS # (AUTO) 0.03 10*3/UL; BASOPHILS % (AUTO) 0.5 % (0-1); EOSINOPHILS # (AUTO) 0.28 10*3/UL; EOSINOPHILS % (AUTO) 4.4 % (0-8); Hematocrit [HCT] 52.7 % (42.0-52.0); Hemoglobin [HGB] 16.8 g/dL (14.0-18.0); LYMPHOCYTES # (AUTO) 0.76 10*3/uL; MEAN CORPUSCULAR HEMOGLOBIN 31.1 PG (27-31); MEAN CORPUSCULAR HGB CONC 31.9 g/dL (33-37); MEAN CORPUSCULAR VOLUME 97.4 FL (80-90); MEAN PLATELET VOLUME 9.4 FL (7.4-12.2); MONOCYTES # (AUTO) 0.53 10*3/UL (0.3-0.8); MONOCYTES % (AUTO) 8.3 % (5-15); NEUTROPHILS # (AUTO) 4.81 10*3/UL; NEUTROPHILS % (AUTO) 74.8 % (50-80); RED BLOOD COUNT 5.41 10^6/uL (4.70-6.10)
[2018-10-16 05:02] LABS: PLATELET MORPHOLOGY COMMENT NORMAL MORPHOLOGY (NORM); RBC MORPHOLOGY COMMENT NORMAL MORPHOLOGY (NORM); WBC MORPHOLOGY COMMENT NORMAL MORPHOLOGY (NORM)
[2018-10-16 05:03] LABS: BUN/CREATININE RATIO 12.66 (6-20); SERUM ALBUMIN 2.9 g/dL (3.5-4.8)
[2018-10-16] MEDS: BUDESONIDE 0.5 MG/2 ML NEB SCH ×2 (06:41→18:53)
[2018-10-16] MEDS: IPRATROPIUM/ALBUTEROL SULFATE 3 ML NEB NEB PRN ×2 (06:41→13:45)
[2018-10-16] MEDS: OMEPRAZOLE 40 MG CAPSULE PO SCH (06:55)
--- NOTE | 2018-10-16 07:14 | PDOC(PROG) ---
Date of Service: 10/16/18 Time of Service: 07:15 Interval History: Subjective Patient feels better compared to when he came in, no significant chills or fever since he's been here. No pain. Objective : Data - Labs CBC and BMP: 10/16/18 04:28 10/16/18 04:28 Objective : Exam - General General Appearance: No Acute Distress, Cooperative - Head Head Exam: Normal Inspection - Eye Eye Exam: Normal Appearance - ENT ENT Exam: Normal Exam - Neck Neck Exam: Normal Inspection - Respiratory Respiratory Exam: Clear to Auscultation - Bilaterally - Cardiovascular Cardiovascular Exam: RRR - GI/Abdominal GI/Abdominal Exam: Normal Bowel Sounds, Non Tender, Non Distended, Soft, No Organomegaly - Rectal Rectal Exam: Deferred - External Exam: Deferred - Extremities Extremities Exam: Normal Inspection - Back Back Exam: Normal Inspection - Neurological Neurological Exam: Alert, Oriented x 3, CN II-XII Intact, No Facial Droop, Speech Intact / Clear, Moves All Extremities Equally - Psychiatric Psychiatric Exam: Normal Affect - Integumentary Integumentary Exam: Normal Color Assessment and Plan - Patient Problems (1) Gram-negative bacteremia Current Visit: Yes Status: Acute Comment: The PCR test on the blood culture had identification of multiple organisms including Escherichia coli, Enterobacter and Klebsiella, will wait for the final identification of the organism and once we have the it will speak with infectious disease about treatment. Meanwhile we'll continue with the Invanz. We'll stop his IV fluids. His LFTs are improving. We ordered ultrasound of his liver. Code(s): R78.81 - Bacteremia (2) Fever Current Visit: Yes Status: Acute Comment: This was secondary to the bacteremia. Code(s): R50.9 - Fever, unspecified Qualifiers: Fever type: unspecified Qualified Code(s): R50.9 - Fever, unspecified (3) Hypertension Current Visit: No Status: Acute Comment: I think will restart his Coreg at a lower dosage. Code(s): I10 - Essential (primary) hypertension Qualifiers: Hypertension type: secondary to other renal disorders Qualified Code(s): I15.1 - Hypertension secondary to other renal disorders; N28.89 - Other specified disorders of kidney and ureter (4) Diabetes mellitus type 2 in obese Current Visit: No Status: Chronic Onset Date: 03/23/12 Comment: Same med Code(s): E11.69 - Type 2 diabetes mellitus with other specified complication; E66.9 - Obesity, unspecified (5) Chronic pain syndrome Current Visit: Yes Status: Acute Comment: Same medication, blood pressure started to come up last night so we restarted him on fentanyl patch. Code(s): G89.4 - Chronic pain syndrome
[2018-10-16] MEDS: GABAPENTIN 300 MG CAPSULE PO SCH ×3 (08:08→20:08)
[2018-10-16] MEDS: CALCITRIOL 0.25 MCG CAPSULE PO SCH (08:08)
[2018-10-16] MEDS: ASPIRIN 81 MG (BABY) CHEWABLE TABLET PO SCH (08:09)
[2018-10-16] MEDS: GLIMEPIRIDE 4 MG PO SCH ×2 (08:09→20:08)
[2018-10-16] MEDS: LORATADINE 10 MG TABLET PO SCH (08:09)
[2018-10-16] MEDS: EXENATIDE 5 MCG SUBCUT SCH ×2 (08:11→20:07)
[2018-10-16] MEDS: CANAGLIFLOZIN 100 MG PO SCH (08:11)
--- NOTE | 2018-10-16 08:30 | DI ---
RIGHT UPPER QUADRANT ULTRASOUND, 10/16/2018 7:00 AM: Clinical History: Fever. Abnormal LFT. Previous Exam: None at this facility. Comparison is made with the noncontrast CT scan of the abdomen and pelvis from 10/15/2018. Technique: Right upper quadrant scanned in multiple projections with Color Doppler ultrasound. Liver Texture: Difficult to assess but does not show gross fatty infiltration. Liver Size: Enlarged by ultrasound criteria. [address] Review of the [address] scan shows that the liver size is probably only at the upper limits of normal. Gallbladder: Postcholecystectomy. Common Bile Duct: 8 mm. Pancreas: Limited to the head and neck and those portions are normal. Right Kidney: Normal right kidney. IVC and Aorta: Normal IVC and aorta not visualized but normal on the CT scans.. READIN. The liver is enlarged by ultrasound criteria but only at the upper limits of normal on the CT sca n. The texture is difficult to evaluate throughout the entire structure but is felt to be normal. The re is no intrahepatic biliary dilatation. 2. Status post cholecystectomy. Common duct is normal at 8 mm for a postcholecystectomy patient. 3. Normal right kidney. Views of the head and neck of the pancreas are normal. The IVC is normal. Th e aorta is not visualized but normal on the CT scans.
[2018-10-16] MEDS ORDERED: CARVEDILOL 6.25 MG TABLET PO SCH (09:00)
[2018-10-16] MEDS: CARVEDILOL 3.125 MG TABLET PO SCH (20:08)
[2018-10-16] MEDS: ATORVASTATIN 20 MG TABLET PO SCH (20:08)
[2018-10-17] MEDS: ZOLPIDEM 10 MG TABLET PO SCH (00:20)
[2018-10-17] MEDS: Ertapenem Inj 1 GM in Sodium Chloride 0.9% 100 ML IV SCH (02:35)
[2018-10-17] MEDS: HYDROcodone-APAP 10 MG-325 MG TABLET PO PRN ×4 (02:36→12:02)
[2018-10-17] MEDS: BUDESONIDE 0.5 MG/2 ML NEB SCH (06:50)
[2018-10-17] MEDS: OMEPRAZOLE 40 MG CAPSULE PO SCH (07:11)
[2018-10-17 07:34] VITALS: RESP 18
[2018-10-17] MEDS: CANAGLIFLOZIN 100 MG PO SCH (08:53)
[2018-10-17] MEDS: GLIMEPIRIDE 4 MG PO SCH (08:53)
[2018-10-17] MEDS: GABAPENTIN 300 MG CAPSULE PO SCH (08:54)
[2018-10-17] MEDS: CARVEDILOL 3.125 MG TABLET PO SCH (08:54)
[2018-10-17] MEDS: CALCITRIOL 0.25 MCG CAPSULE PO SCH (08:54)
[2018-10-17] MEDS: ASPIRIN 81 MG (BABY) CHEWABLE TABLET PO SCH (08:54)
[2018-10-17] MEDS: LORATADINE 10 MG TABLET PO SCH (08:54)
[2018-10-17] MEDS: EXENATIDE 5 MCG SUBCUT SCH (09:15)
--- NOTE | 2018-10-17 09:48 | PDOC(PROG) ---
Objective : Data - Labs CBC and BMP: 10/16/18 04:28 10/16/18 04:28 Assessment and Plan - Patient Problems (1) Gram-negative bacteremia Current Visit: Yes Status: Acute Comment: Continue Invanz IV daily Code(s): R78.81 - Bacteremia (2) Diabetes mellitus type 2 in obese Current Visit: No Status: Chronic Onset Date: 03/23/12 Comment: Stable continue current meds Code(s): E11.69 - Type 2 diabetes mellitus with other specified complication; E66.9 - Obesity, unspecified (3) Hypertension Current Visit: No Status: Acute Comment: Stable Code(s): I10 - Essential (primary) hypertension Qualifiers: Hypertension type: secondary to other renal disorders Qualified Code(s): I15.1 - Hypertension secondary to other renal disorders; N28.89 - Other specified disorders of kidney and ureter (4) Fever Current Visit: Yes Status: Acute Comment: Resolved Code(s): R50.9 - Fever, unspecified Qualifiers: Fever type: unspecified Qualified Code(s): R50.9 - Fever, unspecified (5) Chronic pain syndrome Current Visit: Yes Status: Acute Code(s): G89.4 - Chronic pain syndrome
[2018-10-17 11:02] VITALS: BP 140/90; TEMP 97.4; O2SAT 97
--- NOTE | 2018-10-17 11:48 | DCSUMMARY ---
Hospitalization Summary Hospital Course: Final Discharge Diagnosis: Current Visit Problems Problem Status Onset Code Fever Acute R50.9 SIRS (systemic inflammatory response syndrome) Acute R65.10 Hypotension Acute I95.9 Gram-negative bacteremia Acute R78.81 Chronic pain syndrome Acute G89.4 Diagnostic Data, Laboratory Data, and Procedures of Signifigance: History and Physical pertinent to Admission: Course of Hospitalization: Is a very nice 68-year-old gentleman this is his third recurrence for the Escherichia coli bacteremia is been in [place] at the hospital there source was unable to be identified, aspiration of his anterior abdomen fluctuation had no growth his surgeon also told him that is not the source of his infection repeat CAT scan showed the possible seroma but very small. He is been treated with IV Invanz discussed the case with Dr. Jamaal quevedo to be discharged home on 1 g of Invanz daily considering his vitals are stable no fever he will follow-up with them on Friday to explore more etiology in regards to the cause of the bacteremia. Continues all his home meds as well Dr. Hinton total told us to call his office on Friday for an appointment and to let them know that the issue was discussed with him on Friday and that he would make room for him to be seen On the date of discharge, the patient was examined: Gen.: No acute distress, alert, nontoxic Heart: Regular rate and rhythm, no murmurs, clicks, gallops, or rubs Lungs: Clear to auscultation bilaterally, breathing is nonlabored Abdomen/GI: Normal tones on auscultation, soft, nontender, nondistended Musculoskeletal/extremities: No clubbing, cyanosis, or edema Vitals reviewed and are listed below Vital Signs (24 hrs) 10/16/18 16:16 10/16/18 18:53 10/16/18 18:54 Temperature 99 F Pulse Rate 92 96 Pulse Rate [Apical] Pulse Rate [Pulse Oximeter] 93 Respiratory Rate 12 16 16 Blood Pressure [Left Arm] 139/85 Blood Pressure [Right Arm] Pulse Ox 94 93 10/16/18 19:00 10/16/18 21:00 10/16/18 23:34 Temperature 97.3 F 98.8 F Pulse Rate Pulse Rate [Apical] Pulse Rate [Pulse Oximeter] 94 90 Respiratory Rate 16 16 18 Blood Pressure [Left Arm] Blood Pressure [Right Arm] 146/86 151/89 Pulse Ox 98 94 10/17/18 04:46 10/17/18 05:16 10/17/18 06:50 Temperature 97.9 F Pulse Rate 86 Pulse Rate [Apical] Pulse Rate [Pulse Oximeter] 98 Respiratory Rate 20 16 Blood Pressure [Left Arm] Blood Pressure [Right Arm] 148/87 Pulse Ox 96 91 95 10/17/18 06:51 10/17/18 07:00 10/17/18 07:32 Temperature 97 F Pulse Rate 86 Pulse Rate [Apical] 83 Pulse Rate [Pulse Oximeter] 83 83 Respiratory Rate 16 18 18 Blood Pressure [Left Arm] Blood Pressure [Right Arm] 143/97 Pulse Ox 93 10/17/18 11:00 Temperature 97.4 F Pulse Rate Pulse Rate [Apical] Pulse Rate [Pulse Oximeter] 83 Respiratory Rate 18 Blood Pressure [Left Arm] Blood Pressure [Right Arm] 140/90 Pulse Ox 97 Assessment and Plan: 1. As per discharge assessments above 2. Disposition: Home 3. Condition on discharge, stable and improved. 4. Diet: regular diet 5. Activities: resume normal activities 6. Follow-Up: 1. PCP 2. 7. Medications at the Time of Discharge: Home Medications Medication Instructions Recorded Confirmed Budesonide [Pulmicort] 0.5 mg IH Q12H 11/12/10 10/14/18 Cyanocobalamin 1,000 mcg IM monthly 30 Days 12/23/11 10/14/18 Blood Sugar Diagnostic, Drum 1 ea IN BID PRN #180 strip 05/16/14 10/14/18 [Accu-Chek Compact Plus Strips] Aspirin 81 mg PO DAILY tab 08/15/14 10/14/18 Loratadine [Claritin] 10 mg PO DAILY tab 11/15/14 10/14/18 Nitroglycerin SL Tab [Nitrostat 0.4 mg SL PRN #25 tab 05/16/16 10/14/18 SL Tab] ipratropium-albuterol 0.5 mg-3 3 ml INH TID PRN #3 ml 03/28/17 10/14/18 mg(2.5 mg base)/3 mL nebulization soln gabapentin 300 mg capsule 300 mg PO TID #360 cap MDD 04/23/18 10/14/18 1200mg/300mg BID and 600mg QHS calcitriol 0.25 mcg capsule 0.5 mcg PO DAILY cap 05/07/18 10/14/18 carvedilol 6.25 mg tablet 6.25 mg PO BID #180 tab 06/04/18 10/14/18 hydrocortisone butyrate 0.1 % 1 applic TOPICAL PRN #45 g 06/04/18 10/14/18 topical cream zolpidem 10 mg tablet 20 mg PO QHS #60 tab 06/04/18 10/14/18 exenatide 5 mcg/dose (250 5 mcg SUBCUT BID #1 ea 06/18/18 10/14/18 mcg/mL)1.2 mL subcutaneous pen injector canagliflozin 100 mg tablet 100 mg PO QDAY #90 tab 06/25/18 10/14/18 omeprazole 40 mg capsule,delayed 40 mg PO QDAY #120 cap 06/25/18 10/14/18 release cholecalciferol (vitamin D3) 5,000 See Rx Instructions .ROUTE 08/05/18 10/14/18 unit tablet .COMPLEX #100 tab ipratropium 20 mcg-albuterol 100 1 puff INH QID #2 ea 08/14/18 10/14/18 mcg/actuation mist for inhalation atorvastatin 20 mg tablet 20 mg PO QDAY #90 tab 09/14/18 10/14/18 glimepiride 4 mg tablet 8 mg PO DAILY #180 tab 09/14/18 10/14/18 metformin 500 mg tablet 500 mg PO BID #180 tab 09/14/18 10/14/18 oxygen-air delivery systems device See Dose Instructions .ROUTE 09/14/18 09/14/18 .MEDSUPPLY #1 fentanyl 25 mcg/hr transdermal 1 patch TRANSDERM Q48H #15 patch 10/01/18 10/14/18 patch hydrocodone 10 mg-acetaminophen 1 - 2 tab PO 6XD PRN #270 tab 10/01/18 10/14/18 325 mg tablet Ertapenem Inj [INVanz Inj] 1 gm IV Q24H #10 vial 10/17/18 8. Time, care, counseling and coordination of care for this discharge is greater than 30 minutes. Exam - Vitals Vital Signs: Vital Signs Temperature 97.4 F Temperature Source Temporal Artery Scan Pulse Rate [Apical] 83 Pulse Rate [Pulse Oximeter] 83 Pulse Rate [right hand] 100 Pulse Rate 86 Respiratory Rate 18 Blood Pressure [Right Arm] 140/90 Blood Pressure [Left Arm] 139/85 Blood Pressure 97/62 Pulse Ox [right hand] 94 Pulse Ox 97 Oxygen Flow Rate [right hand] 2 Oxygen Flow Rate 2 Oxygen Delivery Method [right Nasal Cannula hand] Oxygen Delivery Method Room Air Height 5 ft 7 in Weight 191 lb Patient Problems - Patient Problem List (1) Gram-negative bacteremia Status: Acute Code(s): R78.81 - Bacteremia Category: Medical (2) Diabetes mellitus type 2 in obese Status: Chronic Onset Date: 03/23/12 Code(s): E11.69 - Type 2 diabetes mellitus with other specified complication; E66.9 - Obesity, unspecified Category: Medical (3) Hypertension Status: Acute Code(s): I10 - Essential (primary) hypertension Qualifiers: Hypertension type: secondary to other renal disorders Qualified Code(s): I15.1 - Hypertension secondary to other renal disorders; N28.89 - Other specified disorders of kidney and ureter Category: Medical (4) Fever Status: Acute Code(s): R50.9 - Fever, unspecified Qualifiers: Fever type: unspecified Qualified Code(s): R50.9 - Fever, unspecified Category: Medical (5) Chronic pain syndrome Status: Acute Code(s): G89.4 - Chronic pain syndrome Category: Medical
== END 2018-10-17 12:15 | disposition home or self-care (01) | DRG 864 ==
LOC: ER 21:59 → MED/SURG 10-15 02:05
PROVIDERS: ADMIT Internal Medicine; ATTEND Internal Medicine